=== PATIENT | female | born 1955 | race African-American/Black ===

== ENCOUNTER 2018-02-23 02:32 | Emergency (ER) | payer OTHER, BC ==
[2018-02-23] MEDS ORDERED: IBUPROFEN 600 MG TAB PO STA (03:01)
--- NOTE | 2018-02-23 03:07 | ED ---
Lower Extremity Injury HPI - General Chief Complaint: Extremity Injury, Lower Stated Complaint: Knee injury-[facility] Time Seen by Provider: 02/23/18 02:44 Source: patient, RN notes reviewed Mode of arrival: ambulatory Limitations: no limitations - History of Present Illness Initial Comments: This is a 62-year-old female who presents to the emergency department with chief complaint of work-related right knee injury. Patient states that she was up on a ladder. There was a clear ceiling fan cover sitting on the ground. She states that she did not see it and when she came down from the ladder she slipped on it, coming down and landing directly onto her right knee. Patient states that she does have a right knee replacement. She states this was done last May at [facility]. Patient states that she was able to get up off the ground and ambulate. She is bearing weight but does so with pain. She complains of pain to the posterior lateral aspect of the knee as well as the patella. Denies any other injuries or trauma. Denies recent illnesses or infection. Denies fevers or chills, chest pain or shortness of breath, abdominal pain, nausea or vomiting. - Related Data Home Medications Medication Instructions Recorded Confirmed Esomeprazole Magnesium [NexIUM] 20 mg PO BID 05/03/15 02/23/18 Ibuprofen [Motrin] 800 mg PO Q6HR PRN 05/03/15 02/23/18 Olmesartan/Hydrochlorothiazide 1 tab PO DAILY 05/03/15 02/23/18 [Benicar Hct 40-25 mg Tablet] Meclizine [Antivert] 25 mg PO DAILY 02/23/18 02/23/18 Previous Rx's Medication Instructions Recorded traMADol HCl [Ultram] 50 mg PO Q6H PRN #20 tab 05/09/15 Allergies Allergy/AdvReac Type Severity Reaction Status Date / Time Iodinated Contrast- Oral and Allergy Anaphylaxis Verified 02/23/18 02:41 IV Dye [Iodinated Contrast Media - IV Dye] naproxen [From Naprosyn] Allergy Rash/Hives Verified 02/23/18 02:41 Penicillins Allergy Unknown Verified 02/23/18 02:41 Review of Systems ROS Statement: Those systems with pertinent positive or pertinent negative responses have been documented in the HPI. ROS Other: All systems not noted in ROS Statement are negative. Past Medical History Past Medical History: Diabetes Mellitus, Fibromyalgia, GERD/Reflux, Hypertension , Osteoarthritis (OA), Sleep Apnea/CPAP/BIPAP Additional Past Medical History / Comment(s): uses CPAP, diet controlled diabetic History of Any Multi-Drug Resistant Organisms: None Reported Past Surgical History: Appendectomy, Hysterectomy, Joint Replacement, Orthopedic Surgery Additional Past Surgical History / Comment(s): several D & C's, bunionectomy, bilateral shoulder surg., arthroscopies knees, carpal tunnel surg., finger reattached Past Anesthesia/Blood Transfusion Reactions: Previous Problems w/ Anesthesia, Motion Sickness, Postoperative Nausea & Vomiting (PONV) Additional Past Anesthesia/Blood Transfusion Reaction / Comment(s): some kind of problem years ago as she was being put under started vomiting on table, surgery had to be cancelled-not sure name of what she was given, has had surgery since then w/no problem Past Psychological History: No Psychological Hx Reported Smoking Status: Former smoker Past Alcohol Use History: None Reported Past Drug Use History: None Reported - Past Family History Father Family Medical History: Cancer General Exam - General Exam Comments Initial Comments: General: Awake and alert, well-developed; in no apparent distress. HEENT: Head atraumatic, normocephalic. Pupils are equal, round and reactive to light. Extraocular movements intact. Oropharynx moist without erythema or exudate. Neck: Supple. Normal ROM. Cardiovascular: Regular rate and rhythm. No murmurs, rubs or gallops. Chest symmetrical. Respiratory: Lungs clear to auscultation bilaterally. No wheezes, rales or rhonchi. Normal respiratory effort with no use of accessory muscles. Musculoskeletal: Normal range of motion of the right knee, however pain is elicited with full flexion. There is tenderness to the lateral aspect as well as the patella. No obvious gross deformities, ecchymosis, significant swelling or erythema. Sensation is intact. Pedal pulses are 2+ equal and palpable bilaterally. Skin: [place], warm and dry without rashes or lesions. Neurological: Alert and oriented x3. CN II-XII grossly intact. Speech is fluent and answers are appropriate. No focal neuro deficits. Psychiatric: Normal mood and affect. No overt signs of depression or anxiety noted. Limitations: no limitations Course Vital Signs 02/23/18 02:36 Temperature 98.4 F Pulse Rate 76 Respiratory 20 Rate Blood Pressure 157/93 O2 Sat by Pulse 97 Oximetry Medical Decision Making - Medical Decision Making This is a 62-year-old female who presents to the emergency department with chief complaint of work-related right knee injury. Patient slipped when she came off of a ladder and landed straight onto her right knee. Patient does have a knee replacement from last May at [facility]. Patient is able to bear weight and ambulate but does so with pain. X-ray of the right knee was obtained revealed no acute abnormalities. Patient was given a knee immobilizer. Recommended rest, ice, elevation and ibuprofen or Tylenol as needed. Recommended following up with her primary care provider within 1-2 days. Recommend following up with her orthopedic surgeon if no improvement in symptoms. Patient's vital signs are stable and she is in no acute distress. She will be discharged home at this time. She is in agreement with plan and voices understanding. All questions answered. - Radiology Data Radiology results: report reviewed, image reviewed X-ray right knee findings: I see no fracture nor dislocation. There is right knee prosthesis. There is no sign of joint effusion. Impression: No acute abnormality of the right knee. Disposition Clinical Impression: Right knee sprain Disposition: HOME SELF-CARE Condition: Good Instructions: Knee Sprain (ED), RICE Therapy (ED) Additional Instructions: Please follow up with primary care provider within 1-2 days. Please follow up with your orthopedic surgeon if no improvement or worsening in knee pain. Return to emergency department if symptoms should worsen or any concerns arise. Is patient prescribed a controlled substance at d/c from ED?: No Referrals: Jewel Hansen DO [Primary Care Provider] - 1-2 days Time of Disposition: 03:38
--- NOTE | 2018-02-23 03:11 | XR ---
EXAMINATION TYPE: XR knee complete RT DATE OF EXAM: 02/23/2018 COMPARISON: NONE HISTORY: Knee pain TECHNIQUE: 3 views FINDINGS: I see no fracture nor dislocation. There is right knee prosthesis. There is no sign of join t effusion. IMPRESSION: No acute abnormality of the right knee.
[2018-02-23 04:00] VITALS: BP 155/75; PULSE 68; RESP 18; TEMP 97
== END 2018-02-23 03:58 | disposition home or self-care (01) ==
LOC: EC 02:32
DX: S83.91XA Sprain of unspecified site of right knee, initial encounter (principal); K21.9 Gastro-esophageal reflux disease without esophagitis; I10 Essential (primary) hypertension; M19.90 Unspecified osteoarthritis, unspecified site; G47.30 Sleep apnea, unspecified; Z99.89 Dependence on other enabling machines and devices; Z96.651 Presence of right artificial knee joint; Z87.891 Personal history of nicotine dependence; Z79.899 Other long term (current) drug therapy; Z91.041 Radiographic dye allergy status; Z88.6 Allergy status to analgesic agent; Z88.0 Allergy status to penicillin; W11.XXXA Fall on and from ladder, initial encounter; Y92.69 Other specified industrial and construction area as the place of occurrence of the external cause; Y99.0 Civilian activity done for income or pay
CPT/HCPCS: 73562; 99283; L1830

== ENCOUNTER → 2018-02-24 | Outpatient (CLI) | payer BC ==
--- NOTE | 2018-02-24 11:41 | XR ---
EXAMINATION TYPE: XR shoulder complete RT DATE OF EXAM: 02/24/2018 CLINICAL HISTORY: Fall injury with pain TECHNIQUE: Three views of the right shoulder are obtained. COMPARISON: None. FINDINGS: There is no acute fracture/dislocation evident in the right shoulder. There is fairly mode rate joint space loss chromotropic or joint. There is metallic anchors from rotator cuff surgery in t he right humeral head. There is mild spurring glenohumeral joint. There is adjacent clip lateral to r ight humeral head within soft tissue or muscles . The visualized ribs are intact and unremarkable. IMPRESSION: There is no acute fracture or dislocation in the right shoulder.
--- NOTE | 2018-02-24 11:49 | XR ---
EXAMINATION TYPE: XR tibia fibula RT DATE OF EXAM: 02/24/2018 CLINICAL HISTORY: Fall injury with pain. TECHNIQUE: Two views of the right leg are obtained on 3 images. COMPARISON: Right knee x-ray from yesterday FINDINGS: There is no acute fracture or dislocation seen in the right tibia or fibula. Metallic hard pate from a knee arthroplasty is partially imaged on current study. Ankle is felt within normal limit s. The overlying soft tissue appears unremarkable. IMPRESSION: There is no acute fracture or dislocation seen in the right tibia or fibula.
--- NOTE | 2018-02-24 12:01 | CT ---
EXAMINATION TYPE: CT brain wo con DATE OF EXAM: 02/24/2018 HISTORY: Patient complains of headache and dizziness post fall [address] DLP: 794.8 mGycm. Automated Exposure Control for Dose Reduction was Utilized. TECHNIQUE: CT scan of the head is performed without contrast. COMPARISON: CT brain May 16, 2010. FINDINGS: There is no acute intracranial hemorrhage or midline shift identified. Ventricles and sul ci are normal in size for patient's age. Miller-white matter differentiation is preserved. The globes are intact and the visualized sinuses are clear. The calvarium is intact. IMPRESSION: No acute intracranial hemorrhage or midline shift. No significant change from prior.
== END | disposition home or self-care (01) ==
LOC: RADCTMAIN 11:14
PROVIDERS: ATTEND Emergency Medicine
DX: S00.03XA Contusion of scalp, initial encounter (principal); S80.11XA Contusion of right lower leg, initial encounter; M25.511 Pain in right shoulder; G44.89 Other headache syndrome
CPT/HCPCS: 70450

== ENCOUNTER → 2019-05-06 | Outpatient (CLI) | payer BC ==
--- NOTE | 2019-05-09 10:27 | MM ---
Reason for exam: screening (asymptomatic). Last mammogram was performed 1 year and 7 months ago. History: Patient is postmenopausal and is nulliparous. Benign stereotactic core biopsy of the left breast, December 02, 2001. Core biopsy of the left breast. Excisional biopsy of the right breast. Physical Findings: A clinical breast exam by your physician is recommended on an annual basis and results should be correlated with mammographic findings. MG 3D Screening Mammo W/Cad Bilateral CC and MLO view(s) were taken. Prior study comparison: September 24, 2017, mammogram, performed at [facility]. July 29, 2016, mammogram, performed at [facility]. There are scattered fibroglandular densities. There is no discrete abnormality. No significant changes when compared with prior studies. ASSESSMENT: Negative, BI-RAD 1 RECOMMENDATION: Routine screening mammogram of both breasts in 1 year.
== END | disposition home or self-care (01) ==
LOC: RADMAMWWP 16:49
PROVIDERS: ATTEND Obstetrics & Gynecology
DX: Z12.31 Encounter for screening mammogram for malignant neoplasm of breast (principal)
CPT/HCPCS: 77063; 77067

== ENCOUNTER → 2020-01-06 | Outpatient (CLI) | payer OTHER ==
[2020-01-06 16:20] LABS: African American GFR (CKD) 78.9 (60.0-200.0); Anion Gap 13.4 mmol/L (4.00-12.00); BUN/Creat Ratio 21.11 Ratio (12.00-20.00); Calcium 10.1 mg/dL (8.7-10.3); Carbon Dioxide 28.6 mmol/L (21.6-31.8); Potassium 4.2 mmol/L (3.5-5.5)
== END | disposition home or self-care (01) ==
LOC: LABWHC1 09:18
PROVIDERS: ATTEND Family Medicine
DX: M79.605 Pain in left leg (principal); R22.42 Localized swelling, mass and lump, left lower limb; N28.9 Disorder of kidney and ureter, unspecified
CPT/HCPCS: 36415; 80048; 85379

== ENCOUNTER → 2020-05-09 | Outpatient (CLI) | payer OTHER ==
--- NOTE | 2020-05-10 10:07 | MM ---
Reason for exam: screening (asymptomatic). Last mammogram was performed 1 year ago. History: Patient is postmenopausal and is nulliparous. Benign stereotactic core biopsy of the left breast, December 02, 2001. Core biopsy of the left breast. Excisional biopsy of the right breast. Physical Findings: A clinical breast exam by your physician is recommended on an annual basis and results should be correlated with mammographic findings. MG 3D Screening Mammo W/Cad Bilateral CC and MLO view(s) were taken. Prior study comparison: May 06, 2019, bilateral MG 3d screening mammo w/cad. September 24, 2017, mammogram, performed at [facility]. There are scattered fibroglandular densities. Finding: There are typically benign round, grouped/clustered calcifications in the middle position of the left breast. Previous mammotome biopsy in the left breast. There is a chronic nodularity in the right breast. There is no discrete abnormality. ASSESSMENT: Benign, BI-RAD 2 RECOMMENDATION: Routine screening mammogram of both breasts in 1 year.
== END | disposition home or self-care (01) ==
LOC: RADMAMWWP 09:00
PROVIDERS: ATTEND Family Medicine
DX: Z12.31 Encounter for screening mammogram for malignant neoplasm of breast (principal)
CPT/HCPCS: 77063; 77067

== ENCOUNTER → 2021-05-15 | Outpatient (CLI) | payer MEDICARE, OTHER ==
--- NOTE | 2021-05-17 11:04 | MM ---
Reason for exam: screening (asymptomatic). Last mammogram was performed 1 year ago. History: Patient is postmenopausal and is nulliparous. Benign stereotactic core biopsy of the left breast, December 02, 2001. Core biopsy of the left breast. Excisional biopsy of the right breast. Physical Findings: A clinical breast exam by your physician is recommended on an annual basis and results should be correlated with mammographic findings. MG 3D Screening Mammo W/Cad Bilateral CC and MLO view(s) were taken. Prior study comparison: May 09, 2020, bilateral MG 3d screening mammo w/cad. May 06, 2019, bilateral MG 3d screening mammo w/cad. September 24, 2017, mammogram, performed at [facility]. There are scattered fibroglandular densities. Previous mammotome biopsy in the left breast. No significant changes when compared with prior studies. ASSESSMENT: Negative, BI-RAD 1 RECOMMENDATION: Routine screening mammogram of both breasts in 1 year.
== END | disposition home or self-care (01) ==
LOC: RADMAMWWP 13:55
PROVIDERS: ATTEND Obstetrics & Gynecology
DX: Z12.31 Encounter for screening mammogram for malignant neoplasm of breast (principal); Z78.0 Asymptomatic menopausal state
CPT/HCPCS: 77063; 77067

== ENCOUNTER → 2022-06-02 | Outpatient (CLI) | payer MEDICARE, OTHER ==
--- NOTE | 2022-06-02 10:34 | MM ---
Reason for Exam: Screening (asymptomatic). Last mammogram was performed 1 year(s) and 1 month(s) ago. Patient History: Menarche at age 10. Patient has no children. Left ovary removed at age 46. Right ovary removed at age 46. Hysterectomy at age 46. Postmenopausal. Core Biopsy on the Left side. Excisional Biopsy on the Right side. 12/02/2001, Benign Stereotactic Core Biopsy on the left side. Risk Values: Ana M 5 year model risk: 3.1%. NCI Lifetime model risk: 10.8%. Prior Study Comparison: 05/06/2019 Bilateral Screening Mammogram, [facility]. 05/09/2020 Bilateral Screening Mammogram, [facility]. 05/15/2021 Bilateral Screening Mammogram, [facility]. Tissue Density: There are scattered fibroglandular densities. Findings: Analyzed By CAD. Mammotome biopsy clip in the left breast is redemonstrated. Stable tiny well-circumscribed round mass in the right breast centrally. Stable group of benign-appearing round calcifications in the left breast. There is no suspicious new group of microcalcifications or new suspicious mass in either breast. Overall Assessment: Benign, BI-RAD 2 Management: Screening Mammogram of both breasts in 1 year. A clinical breast exam by your physician is recommended on an annual basis and results should be correlated with mammographic findings. Electronically signed and approved by: Armand Gutierrez M.D.
== END | disposition home or self-care (01) ==
LOC: RADMAMWWP 09:07
PROVIDERS: ATTEND Family Medicine
DX: Z12.31 Encounter for screening mammogram for malignant neoplasm of breast (principal); Z78.0 Asymptomatic menopausal state
CPT/HCPCS: 77063; 77067

== ENCOUNTER → 2023-01-06 | Outpatient (CLI) | payer MEDICARE, OTHER ==
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
== END | disposition home or self-care (01) ==
LOC: RADMRIMAIN 10:28
PROVIDERS: ATTEND Family Medicine
DX: M50.122 Cervical disc disorder at C5-C6 level with radiculopathy (principal); M47.22 Other spondylosis with radiculopathy, cervical region; M99.71 Connective tissue and disc stenosis of intervertebral foramina of cervical region
CPT/HCPCS: 72156; A9585

== ENCOUNTER → 2023-01-14 | Outpatient (CLI) | payer MEDICARE, OTHER ==
--- NOTE | 2023-01-14 09:55 | CT ---
EXAMINATION TYPE: CT ChestAbdPelvis wo/w con CT DLP: 2983.30 mGycm, Automated exposure control for dose reduction was used. DATE OF EXAM: 01/14/2023 9:33 AM COMPARISON: None CLINICAL INDICATION:Female, 67 years old with history of R07.9 R10.84; PHH, Left chest pain, Generali zed abdominal pain Technique: Multiple axial images of the chest, abdomen, and pelvis were obtained before and after the intravenous administration of 100 mL Isovue-300. Oral contrast was administered. Two-dimensional cor onal and sagittal reconstructions were obtained. Patient was premedicated due to iodine allergy. Findings: CHEST: LUNGS/ PLEURA: The lung parenchyma appears unremarkable. No suspicious pulmonary nodule or mass. AIRWAY: Patent and unremarkable.. HEART: Size within normal limits. No pericardial effusion. MEDIASTINUM: No gross evidence of adenopathy. VASCULATURE: No aortic aneurysm. MUSCULOSKELETAL: No acute osseous abnormalities. SOFT TISSUES/LYMPH NODES: A few nonenlarged bilateral axillary lymph nodes. LOWER NECK: No significant findings. ABDOMEN: ABDOMEN LIVER: Unremarkable GALLBLADDER AND BILE DUCTS: The gallbladder is surgically absent. PANCREAS: Unremarkable. SPLEEN: Unremarkable. ADRENAL GLANDS: Unremarkable. KIDNEYS AND URETERS: No evidence of hydronephrosis or renal calculus. The kidneys enhance symmetrical ly without suspicious focal lesion. Contrast demonstrated within both collecting systems on the delay ed phase. PELVIS BLADDER: Unremarkable REPRODUCTIVE: The uterus is surgically absent. No suspicious adnexal mass. ABDOMEN & PELVIS STOMACH AND BOWEL: Small hiatal hernia, duodenum is unremarkable. Sigmoid diverticulosis without evid ence for acute diverticulitis. Enteric contrast reaches the descending colon. No evidence of bowel ob struction. PERITONEUM: No evidence of pneumoperitoneum or free fluid. VASCULATURE: No evidence of aortic aneurysm. MUSCULOSKELETAL: No acute osseous abnormalities. Degenerative changes of the pubic symphysis. Lower l umbar spine facet arthropathy. Grade 1 anterolisthesis of L4 on L5 without evidence of pars defect. LYMPH NODES: No gross evidence for lymphadenopathy. SOFT TISSUE/ABDOMINAL WALL: Tiny fat filled lumbrical hernia. IMPRESSION: 1. No acute process within the chest, abdomen or pelvis. 2. Colonic diverticulosis without evidence for acute diverticulitis.
== END | disposition home or self-care (01) ==
LOC: RADCTMAIN 01-02 12:41
PROVIDERS: ATTEND Family Medicine
DX: K57.30 Diverticulosis of large intestine without perforation or abscess without bleeding (principal); R07.9 Chest pain, unspecified
CPT/HCPCS: 82565; 84520; 71270; 74178; 36415; Q9967

== ENCOUNTER → 2023-04-21 | Outpatient (CLI) | payer OTHER, MEDICARE ==
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
== END | disposition home or self-care (01) ==
LOC: RADMRIMAIN 06:53
PROVIDERS: ATTEND Family Medicine
DX: R90.82 White matter disease, unspecified (principal); R41.3 Other amnesia
CPT/HCPCS: 70551

== ENCOUNTER → 2023-05-01 | Outpatient (CLI) | payer MEDICARE, OTHER ==
--- NOTE | 2023-05-01 13:48 | MR ---
EXAMINATION TYPE: MR lumbar spine wo con DATE OF EXAM: 05/01/2023 COMPARISON: Lumbar spine radiograph 04/21/2023 HISTORY: Low back pain into rt buttocks and leg TECHNIQUE: Multiplanar, multisequence images of the lumbar spine were acquired without IV contrast. FINDINGS: There are 6 lumbar type vertebral bodies identified. Lumbar segments are intact. No paraspinal dani s are identified. Conus medullaris has a normal appearance. Disc desiccation at L5-L6 and L6-S1. Gra de 1 anterolisthesis of L5 on L6. Suggested bilateral pars defects. L1-L2: No herniation, protrusion or disc bulging. No canal stenosis is present. Foramina are patent bilaterally. L2-L3: No herniation, protrusion or disc bulging. No canal stenosis is present. Foramina are patent bilaterally. L3-L4: No herniation, protrusion or disc bulging. No canal stenosis is present. Foramina are patent bilaterally. L4-L5: No herniation or disc bulge. No significant central canal stenosis. Bilateral facet arthropath y. The neural foramina are patent bilaterally. L5-L6: Grade 1 anterolisthesis with uncovering of the disc. Mild broad-based disc bulge with bilatera l facet arthropathy and ligamentum flavum buckling contribute to mild central canal narrowing. Mild l eft and [id number]-[id number] right neural foraminal narrowing. L6-S1: Minimal broad-based disc bulge without significant effacement of the intrathecal sac. Bilatera l facet arthropathy. Mild bilateral neural foraminal narrowing. IMPRESSION: 1. Mild lower lumbar spine degenerative disease with mild central canal narrowing at L5-L6 with mild left and mild to moderate neural foraminal narrowing secondary to facet arthropathy. 2. L5-L6 grade 1 anterolisthesis.
== END | disposition home or self-care (01) ==
LOC: RADMRIMAIN 10:55
PROVIDERS: ATTEND Orthopaedic Surgery
DX: M47.26 Other spondylosis with radiculopathy, lumbar region (principal); M51.16 Intervertebral disc disorders with radiculopathy, lumbar region; M99.73 Connective tissue and disc stenosis of intervertebral foramina of lumbar region; M43.16 Spondylolisthesis, lumbar region; M48.061 Spinal stenosis, lumbar region without neurogenic claudication
CPT/HCPCS: 72148

== ENCOUNTER → 2023-06-17 | Outpatient (CLI) | payer MEDICARE, OTHER ==
--- NOTE | 2023-06-17 10:41 | MM ---
Reason for Exam: Additional evaluation requested from abnormal screening. Last screening mammogram was performed less than 1 month ago. Patient History: Menarche at age 10. Patient has no children. Left ovary removed at age 46. Right ovary removed at age 46. Hysterectomy at age 46. Postmenopausal. Core Biopsy on the Left side. Excisional Biopsy on the Right side. 12/02/2001, Benign Stereotactic Core Biopsy on the left side. Risk Values: Ana M 5 year model risk: 1.8%. NCI Lifetime model risk: 5.9%. Prior Study Comparison: 05/15/2021 Bilateral Screening Mammogram, [facility]. 06/02/2022 Bilateral MG 3D screening mammo w/cad, [facility]. 06/15/2023 Bilateral MG 3D screening mammo w/cad, [facility]. Tissue Density: Left: There are scattered fibroglandular densities. Findings: Analyzed By CAD. At the upper outer quadrant left breast 4 cm from the nipple is a 5 mm nodular density. Ultrasound is recommended. Overall Assessment: Incomplete: need additional imaging evaluation, BI-RAD 0 Management: Diagnostic Breast Ultrasound of the left breast. . Results were given to the patient verbally at the time of exam. Patient should continue monthly self-breast exams. A clinical breast exam by your physician is recommended on an annual basis. This exam should not preclude additional follow-up of suspicious palpable abnormalities. Note on Ana M scores and lifetime risk: 1. A Ana M score greater than 3% is considered moderate risk. If this is the case, consider specialist referral to assess eligibility for a risk reducing agent. 2. If overall lifetime risk for the development of breast cancer is 20% or higher, the patient may qualify for future screening with alternating mammogram and breast MRI. Electronically signed and approved by: Deepak Rodríguez M.D. Radiologis
--- NOTE | 2023-06-17 11:21 | USB ---
Reason for Exam: Additional evaluation requested from abnormal screening. Patient History: Menarche at age 10. Patient has no children. Left ovary removed at age 46. Right ovary removed at age 46. Hysterectomy at age 46. Postmenopausal. Core Biopsy on the Left side. Excisional Biopsy on the Right side. 12/02/2001, Benign Stereotactic Core Biopsy on the left side. Risk Values: Ana M 5 year model risk: 1.8%. NCI Lifetime model risk: 5.9%. Technique: Method: Targeted. Prior Study Comparison: 05/15/2021 Bilateral Screening Mammogram, [facility]. 06/02/2022 Bilateral MG 3D screening mammo w/cad, [facility]. 06/15/2023 Bilateral MG 3D screening mammo w/cad, [facility]. Findings: The upper outer quadrant of the left breast, the axilla of the left breast and the retroareolar of the left breast were scanned. Too small to characterize hypoechoic lesion left 12:00 4 cm from the nipple measuring 4 mm. A second hypoechoic area left 2:00 region measures 3 mm. Both areas are too small to characterize.. Overall Assessment: Probably benign, BI-RAD 3 Management: Diagnostic Breast Ultrasound of the left breast in 6 months. A clinical breast exam by your physician is recommended on an annual basis and results should be correlated with mammographic findings. This exam should not preclude additional follow-up of suspicious palpable abnormalities. Results were given to the patient verbally at the time of exam. Electronically signed and approved by: Deepak Rodríguez M.D. Radiolog[facility]
== END | disposition home or self-care (01) ==
LOC: RADMAMWWP 10:11
PROVIDERS: ATTEND Family Medicine
DX: R92.8 Other abnormal and inconclusive findings on diagnostic imaging of breast (principal); Z78.0 Asymptomatic menopausal state
CPT/HCPCS: 77061; 77065

== ENCOUNTER → 2023-12-18 | Outpatient (CLI) | payer MEDICARE ==
--- NOTE | 2023-12-19 10:54 | US ---
EXAMINATION TYPE: US kidneys/renal and bladder DATE OF EXAM: 12/18/2023 COMPARISON: NONE CLINICAL INDICATION: Female, 68 years old with history of R60.9 EDEMA, UNSPECIFIED,R10.9; Patient fee ls like she cant fully empty bladder. EXAM MEASUREMENTS: Right Kidney: 10.9 x 6.0 x 5.8 cm Left Kidney: 11.1 x 6.5 x 4.6 cm Post Void Residual Volume: 11.4 mL Slightly limited due to overlying gas and patient body habitus Right Kidney: No hydronephrosis or masses seen as best visualized today Left Kidney: No hydronephrosis or masses seen as best visualized today Bladder: wnl Bilateral Jets seen: Yes Normal Post Void Residual: Yes There is no evidence for hydronephrosis at this point in time. No nephrolithiasis is seen. No dani s are identified. The urinary bladder is anechoic. Bilateral ureteral jets are seen. IMPRESSION: No significant abnormality seen.
== END | disposition home or self-care (01) ==
LOC: RADUSWWP 15:04
PROVIDERS: ATTEND Family Medicine
DX: R60.9 Edema, unspecified (principal); R10.9 Unspecified abdominal pain
CPT/HCPCS: 76770